=== PATIENT | female | born 1930 | race Caucasian/White ===

== ENCOUNTER 2017-08-17 13:23 | Emergency (ER) | payer MEDICARE, OTHER ==
--- NOTE | 2017-08-17 13:56 | ERNOTE ---
Lower Extremity HPI - Narrative Date of Service: 08/17/17 - General Lower Extremities Pain: hip: right Time Seen by Provider: 08/17/17 13:42 Source: patient Exam Limitations: no limitations - Immun/Allergies/Home Medications Allergies/Adverse Reactions: Allergies Allergy/AdvReac Type Severity Reaction Status Date / Time No Known Allergies Allergy Verified 08/17/17 13:35 Home Medications: HOME MEDICATIONS Lovastatin [Mevacor] 30 mg PO DAILY 01/18/14 [Last Taken 01/17/14] metFORMIN HCL [Metformin HCl] 1,000 mg PO BID 01/19/14 [Last Taken Unknown] Enalapril Maleate 2.5 mg PO DAILY #60 tab 01/21/14 [Last Taken 01/17/14] Furosemide [Lasix] 40 mg PO DAILY #0 tablet 01/21/14 [Last Taken Unknown] Carvedilol [Coreg] 6.25 mg PO BID 09/25/14 [Last Taken Unknown] Glimepiride [Amaryl] 1 mg PO DAILY 07/12/15 [Last Taken Unknown] Potassium Chloride [K-Dur] 20 meq PO DAILY 07/12/15 [Last Taken Unknown] Aspirin [Aspirin EC] 81 mg PO DAILY 06/07/17 [Last Taken Unknown] Isosorbide Mononitrate [Imdur] 60 mg PO DAILY 06/07/17 [Last Taken Unknown] Warfarin Sodium [Coumadin] 2 mg PO SUMOTUWETHFRSA 06/07/17 [Last Taken Unknown] - History of Present Illness Narrative: Pt. comes in with c/o R hip pain after she fell two weeks ago. Pt. states that she is weak with walking and holds onto things in her house to get from place to place and she grabbed ahold of a dining room chair and it gave way. Pt. denies any other pain or hitting her head during the fall. Review of Systems - Review of Systems Constitutional: Present: no symptoms reported. Absent: recent illness, fever, chills, weakness, fatigue, malaise EYE: Present: no symptoms reported ENT: Present: no symptoms reported Respiratory: Present: no symptoms reported. Absent: shortness of breath, cough , wheezing Cardiology: Present: no symptoms reported. Absent: chest pain, palpitations, edema Gastrointestinal/Abdominal: Present: no symptoms reported. Absent: nausea, vomiting, diarrhea Genitourinary: Present: no symptoms reported Musculoskeletal: Present: joint pain - R post hip. Absent: back pain Skin: Present: no symptoms reported Neurological: Present: weakness - generalized not new. Absent: headache, dizziness/light-headedness, numbness, tingling All Other Systems: All systems neg except as marked - Patient's Past Medical History Patient History - Medical: Diabetes Type 2, GERD Patient History - Cardiac/Respiratory: Atrial Fibrillation, CHF, Hypertension, Hyperlipidemia, Myocardial Infarction Patient History - Cancer: No Hx of Cancer Patient History - Surgical Procedures: Appendectomy, Hysterectomy, Pacemaker Patient History - Other: None - Social History Living Situations: home Physical Exam - Physical Exam General Appearance: Present: wd/wn, alert, no apparent distress Head Exam: Present: normal inspection, no evidence of injury Eye Exam: Normal inspection: bilateral, PERRL: bilateral, EOMI: bilateral Ears, Nose, Throat: Present: normal ENT inspection, normal pharynx Neck: Present: normal inspection, nontender. Absent: lymphadenopathy (R), lymphadenopathy (L) Respiratory: Present: no respiratory distress, normal breath sounds, no accessory muscle use, chest nontender, lungs clear Cardiovascular/Chest: Present: regular rate, rhythm, no murmur, normal peripheral pulses Back Exam: Present: normal inspection, normal range of motion, no CVA tenderness , no vertebral tenderness Extremity Exam: Present: normal range of motion, no edema, bony tenderness - post ischial tuberosity Neurological Exam: Present: alert, oriented, normal mood/affect, no motor/ sensory deficits Skin Exam: Present: normal color, warm/dry, other - bruise R lateral hip healing as expected with yellowing. Absent: pallor, skin rash ED Progress - Date and Time Seen: Date and Time: 08/17/17 Pt. is not safe ambulating in home with out assist. Educated pt. that she needs to get walker and use at all times. Pt. daughter states that pt. has a friend who has offered her one in the past so she will get one from her. 08/17/17 Discussed with Yael and as pt. INR is normalized I feel that it is safe for pt. to start back on Coumadin and feel that pt. should not have NSAIDS so will change to Tylenol for short period of time. - Results and Orders Patient's Lab Results:: I have reviewed the patient's lab results. - Vital Signs Patient's Vital Signs:: I have reviewed the patient's vital signs. Vital Signs: Vital Signs 08/17/17 13:29 Temperature 36.0 C L Pulse Rate 64 Respiratory 12 Rate Blood Pressure 146/95 O2 Sat by Pulse 99 Oximetry - X-Ray X-Ray #1 X-Ray: hip Interpretation: Reviewed by me X-ray Comments: no acute ossious abnormality - Progress/Reassessment Chief Complaint: Hip Pain/Injury Progress:: Improved Departure Clinical Impression: Contusion of hip, right Qualifiers: Encounter type: initial encounter Qualified Code(s): S70.01XA - Contusion of right hip, initial encounter - Departure Disposition: Home self-care Condition: Good Instructions: Contusion, [id number] Additional Instructions: Please follow up with your primary provider in 2-3 days please stop taking Ibuprofen or naproxen. Please start taking Tylenol 1000mg
[2017-08-17 15:39] VITALS: BP 136/62
== END 2017-08-17 15:40 | disposition home or self-care (01) ==
LOC: ER 13:23
DX: S70.01XA Contusion of right hip, initial encounter (principal); W01.0XXA Fall on same level from slipping, tripping and stumbling without subsequent striking against object, initial encounter; Y92.001 Dining room of unspecified non-institutional (private) residence as the place of occurrence of the external cause; E11.9 Type 2 diabetes mellitus without complications; K21.9 Gastro-esophageal reflux disease without esophagitis; I48.91 Unspecified atrial fibrillation; Z79.01 Long term (current) use of anticoagulants; I50.9 Heart failure, unspecified; I10 Essential (primary) hypertension; E78.5 Hyperlipidemia, unspecified; I25.2 Old myocardial infarction

== ENCOUNTER 2017-09-07 10:46 | Emergency (ER) | payer MEDICARE, OTHER ==
[2017-09-07] MEDS ORDERED: traMADol HCL 50 MG TABLET PO ONE (11:27)
--- NOTE | 2017-09-07 11:31 | ERNOTE ---
Back Pain ER HPI Date of Service: 09/07/17 Presenting Symptoms: injury/pain to back Time Seen by Provider: 09/07/17 11:10 Source: patient Exam Limitations: no limitations Immunizations: IMMUNIZATION HX Immunizations Up to Date No Immunizations Comment "dont agree" with her History of Influenza Vaccine No Hx Pneumococcal Vaccination No Allergies/Adverse Reactions: Allergies No Known Allergies Allergy (Verified 09/07/17 12:29) Home Medications: HOME MEDICATIONS Lovastatin [Mevacor] 30 mg PO DAILY 01/18/14 [Last Taken 09/06/17] metFORMIN HCL [Metformin HCl] 1,000 mg PO BID 01/19/14 [Last Taken 09/07/17] Enalapril Maleate 2.5 mg PO DAILY #60 tab 01/21/14 [Last Taken 09/07/17] Furosemide [Lasix] 40 mg PO DAILY #0 tablet 01/21/14 [Last Taken 09/07/17] Carvedilol [Coreg] 6.25 mg PO BID 09/25/14 [Last Taken 09/07/17] Glimepiride [Amaryl] 1 mg PO DAILY 07/12/15 [Last Taken 09/07/17] Potassium Chloride [K-Dur] 20 meq PO DAILY 07/12/15 [Last Taken 09/07/17] Aspirin [Aspirin EC] 81 mg PO DAILY 06/07/17 [Last Taken 09/07/17] Isosorbide Mononitrate [Imdur] 60 mg PO DAILY 06/07/17 [Last Taken 09/07/17] Warfarin Sodium [Coumadin] 4 mg PO DAILY 06/07/17 [Last Taken 09/06/17] traMADol HCL [Tramadol HCl] 50 mg PO QID PRN #20 tablet 09/07/17 [Last Taken Unknown] Narrative: Pt. comes in with c/o B buttock pain and low back pain from a fall 2 weeks ago. Pt. was seen by this provider a wek ago but at that time only had pain in her R hip. pt. staets that the pain improved with rest and Tylenol; but 5 days ago worsened again without cause and has not been relieved with the Tylenol but has been somewhat alleviated since this morning when she took 440mg of Naproxen for the pain. Pt. denies any numbness or tingling but states taht the pain does make it difficult for her to function. Review of Systems - Review of Systems Constitutional: Present: no symptoms reported. Absent: recent illness, fever, chills, weakness, fatigue, malaise EYE: Present: no symptoms reported ENT: Present: no symptoms reported Respiratory: Present: no symptoms reported. Absent: shortness of breath, cough , wheezing Cardiology: Present: no symptoms reported. Absent: chest pain, palpitations, edema Gastrointestinal/Abdominal: Present: no symptoms reported. Absent: nausea, vomiting, diarrhea Genitourinary: Present: no symptoms reported Musculoskeletal: Present: back pain - L5 S1, joint pain - B post hip Skin: Present: no symptoms reported. Absent: rash, change in color Neurological: Present: no symptoms reported. Absent: headache, dizziness/light- headedness, numbness, tingling All Other Systems: All systems neg except as marked - Patient's Past Medical History Patient History - Medical: No pertinent hx - Social History Smoking Status: Former smoker Have you smoked in the past 12 months: No Do you dip or chew tobacco: No - Immunizations Immunizations Up to Date: No Hx Pneumococcal Vaccination: No History of Influenza Vaccine: No Physical Exam - Physical Exam General Appearance: Present: wd/wn, alert, no apparent distress Head Exam: Present: normal inspection, no evidence of injury Eye Exam: Normal inspection: bilateral, PERRL: bilateral, EOMI: bilateral Ears, Nose, Throat: Present: normal ENT inspection, normal pharynx Neck: Present: normal inspection, nontender. Absent: lymphadenopathy (R), lymphadenopathy (L) Respiratory: Present: no respiratory distress, normal breath sounds, no accessory muscle use, chest nontender, lungs clear Cardiovascular/Chest: Present: regular rate, rhythm, no murmur, normal peripheral pulses Gastrointestinal/Abdominal: Present: normal bowel sounds, nontender Back Exam: Present: vertebral tenderness - L5 S1, decreased range of motion - flexion and rotation Extremity Exam: Present: non-tender, decreased range of motion - pain with resisted flexion and extension, no pain with palpation Neurological Exam: Present: alert, oriented, normal mood/affect, no motor/ sensory deficits, 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 Absent: pallor, skin rash ED Progress - Date and Time Seen: Date and Time: 09/07/17 13:08 Discussed case with Tobi Acuna and he feels that whether pt. sprained her sacrum or had these non displaced fractures that treatment would be rest, heat and Tramadol for pain control due to her limited safety of pain relieving medications. Will also have pt. follow up with Dr Oconnor to discuss MRI. - Results and Orders Patient's Lab Results:: I have reviewed the patient's lab results. - Vital Signs Patient's Vital Signs:: I have reviewed the patient's vital signs. Vital Signs: Vital Signs 09/07/17 10:52 Temperature 36.3 C L Pulse Rate 65 Respiratory 18 Rate Blood Pressure 137/72 O2 Sat by Pulse 100 Oximetry - X-Ray X-Ray #1 X-Ray: pelvis Interpretation: Reviewed by me X-ray Comments: lucency over L greater trochanter and L illiac crest possible fractures but unlikely as pt. has no point tenderness anywhere - Progress/Reassessment Chief Complaint: Back Pain Progress:: Improved Departure Clinical Impression: Strain, sacral Qualifiers: Encounter type: initial encounter Qualified Code(s): S39.012A - Strain of muscle, fascia and tendon of lower back, initial encounter - Departure Disposition: Home self-care Condition: Good Instructions: Low Back Sprain With Rehab-SportsMed, Muscle Cramps and Spasms, [id number], Heat Therapy Additional Instructions: Please use heating pad and tramadol and follow up with Dr Oconnor as scheduled at 2 pm on Sunday09/10/2017 to discuss need for MRI. Referrals: Caterina Oconnor MD [Primary Care Provider] - Prescriptions: traMADol HCL [Tramadol HCl] 50 mg PO QID PRN #20 tablet PRN Reason: Pain
[2017-09-07 11:51] LABS: Prothrombin Time (Patient) 29.1 Seconds (9.0-11.0)
[2017-09-07 11:53] LABS: INR 2.88 INR (0.90-1.10)
[2017-09-07] MEDS ORDERED: traMADol HCL 50 MG TABLET ONE (11:57)
[2017-09-07 13:29] VITALS: BP 132/70
== END 2017-09-07 13:27 | disposition home or self-care (01) ==
LOC: ER 10:46
DX: S39.012A Strain of muscle, fascia and tendon of lower back, initial encounter (principal); W19.XXXA Unspecified fall, initial encounter; Y93.9 Activity, unspecified; Y92.9 Unspecified place or not applicable; Y99.9 Unspecified external cause status